=== PATIENT | female | born 1995 | race Caucasian/White ===

== ENCOUNTER 2019-07-27 16:33 | Emergency (ER) | payer OTHER ==
[~2019-07-27] VITALS: Ht 172.7 cm; Wt 71.0 kg
[~2019-07-27 16:33] MED LIST: IBUP-1561 PO
[2019-07-27 16:45] VITALS: BP 114/65; PULSE 88; RESP 18; Ht 172.7 cm; Wt 71.0 kg
== END 2019-07-27 21:11 | disposition home or self-care (01) ==
LOC: FTE 16:33
DX: S63.612A Unspecified sprain of right middle finger, initial encounter (principal); V49.50XA Passenger injured in collision with unspecified motor vehicles in traffic accident, initial encounter
CPT/HCPCS: 29130; 73130; 81025; Z7502